=== PATIENT | female | born 1970 | race American Indian/Alaskan Native ===

== ENCOUNTER 2018-07-18 18:22 | Emergency (ER) | payer SELFPAY ==
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
[2018-07-18] MEDS ORDERED: MOTRIN PO ONE (21:17)
[2018-07-18 21:34] VITALS: BP 126/72
== END 2018-07-18 21:32 | disposition home or self-care (01) ==
LOC: ED 18:22
DX: M79.671 Pain in right foot (principal); I10 Essential (primary) hypertension; K21.9 Gastro-esophageal reflux disease without esophagitis; F32.9 Major depressive disorder, single episode, unspecified; J45.909 Unspecified asthma, uncomplicated; D57.3 Sickle-cell trait; F17.200 Nicotine dependence, unspecified, uncomplicated; Z90.710 Acquired absence of both cervix and uterus; Z91.018 Allergy to other foods; Z91.010 Allergy to peanuts; Z88.0 Allergy status to penicillin; Z88.5 Allergy status to narcotic agent
CPT/HCPCS: 99282

== ENCOUNTER 2018-12-07 17:37 | Emergency (ER) | payer OTHER ==
[2018-12-07 17:46] VITALS: BP 116/72
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
[2018-12-07] MEDS ORDERED: ULTRAM PO ONE (19:12)
[2018-12-07] MEDS ORDERED: IBUPROFEN PO ONE (19:12)
--- NOTE | 2018-12-07 19:53 | XRay Report ---
FINAL REPORT EXAM: XR SHOULDER 2+V RT HISTORY: right shoulder pain TECHNIQUE: Frontal and Y-views right shoulder Comparison: None FINDINGS: There is no evidence of fracture or subluxation. The joint spaces appear to be maintained. The soft tissues are unremarkable. IMPRESSION: 1. No evidence of bony or soft tissue abnormality. If the patient remains symptomatic, MRI may be helpful.
== END 2018-12-07 20:40 | disposition home or self-care (01) ==
LOC: ED 17:37
DX: S46.911A Strain of unspecified muscle, fascia and tendon at shoulder and upper arm level, right arm, initial encounter (principal); I10 Essential (primary) hypertension; K21.9 Gastro-esophageal reflux disease without esophagitis; F32.9 Major depressive disorder, single episode, unspecified; J45.909 Unspecified asthma, uncomplicated; X50.0XXA Overexertion from strenuous movement or load, initial encounter; Y93.89 Activity, other specified; Y92.89 Other specified places as the place of occurrence of the external cause; Y99.8 Other external cause status

== ENCOUNTER 2020-09-17 11:09 | Emergency (ER) | payer SELFPAY ==
[2020-09-17 11:24] VITALS: BP 125/56
[2020-09-17] MEDS ORDERED: CYCLOBENZAPRINE 10 MG TAB PO ONE (11:42)
[2020-09-17] MEDS ORDERED: KETOROLAC 60 MG/2 ML INJ IM ONE (11:42)
--- NOTE | 2020-09-17 12:16 | XRay Report ---
LUMBAR SPINE 2 VIEWS INDICATION / CLINICAL INFORMATION: low back pain s/p fall COMPARISON: None available. FINDINGS: BONES / JOINT(S): No acute fracture or subluxation. Minimal DDD L3-L5. SOFT TISSUES: No significant abnormality. ADDITIONAL FINDINGS: None. Signer Name: Dennis Garcia MD Signed: 09/17/2020 12:11 PM Workstation Name: [email or web address]
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
== END 2020-09-17 12:33 | disposition home or self-care (01) ==
LOC: ED 11:09
DX: S39.012A Strain of muscle, fascia and tendon of lower back, initial encounter (principal); I10 Essential (primary) hypertension; K21.9 Gastro-esophageal reflux disease without esophagitis; F32.89 Other specified depressive episodes; J45.909 Unspecified asthma, uncomplicated; D57.3 Sickle-cell trait; Z98.890 Other specified postprocedural states; Z90.710 Acquired absence of both cervix and uterus; Z79.899 Other long term (current) drug therapy; Z88.0 Allergy status to penicillin; Z91.010 Allergy to peanuts; Z91.018 Allergy to other foods; X58.XXXA Exposure to other specified factors, initial encounter; Y93.89 Activity, other specified; Y92.89 Other specified places as the place of occurrence of the external cause; Y99.8 Other external cause status
CPT/HCPCS: 72100; 96372; 99283; J1885

== ENCOUNTER 2021-02-09 22:42 | Emergency (ER) | payer SELFPAY ==
[2021-02-10 00:22] VITALS: BP 130/57
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
[2021-02-10] MEDS ORDERED: ACETAMINOPHEN 325 MG TAB PO ONE (01:49)
[2021-02-10] MEDS ORDERED: IBUPROFEN 400 MG TAB PO ONE (01:49)
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
== END 2021-02-10 03:01 | disposition home or self-care (01) ==
LOC: ED 22:42
DX: S43.402A Unspecified sprain of left shoulder joint, initial encounter (principal); S83.8X2A Sprain of other specified parts of left knee, initial encounter; M62.838 Other muscle spasm; M62.830 Muscle spasm of back; K21.9 Gastro-esophageal reflux disease without esophagitis; I10 Essential (primary) hypertension; J45.909 Unspecified asthma, uncomplicated; F32.9 Major depressive disorder, single episode, unspecified; F17.200 Nicotine dependence, unspecified, uncomplicated; Z90.710 Acquired absence of both cervix and uterus; Z79.899 Other long term (current) drug therapy; Z88.0 Allergy status to penicillin; Z88.8 Allergy status to other drugs, medicaments and biological substances; Z91.010 Allergy to peanuts; Z98.890 Other specified postprocedural states; Y04.8XXA Assault by other bodily force, initial encounter; Y93.89 Activity, other specified; Y92.009 Unspecified place in unspecified non-institutional (private) residence as the place of occurrence of the external cause; Y99.8 Other external cause status
CPT/HCPCS: 70150; 72040; 72100

== ENCOUNTER 2021-09-12 23:47 | Emergency (ER) | payer SELFPAY ==
[2021-09-13 00:09] VITALS: BP 97/53
== END 2021-09-13 01:00 ==
LOC: ED 23:47
DX: R05.9 Cough, unspecified (principal); J98.8 Other specified respiratory disorders; Z53.21 Procedure and treatment not carried out due to patient leaving prior to being seen by health care provider

== ENCOUNTER 2021-10-06 20:01 | Emergency (ER) | payer SELFPAY ==
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
[2021-10-06 21:17] LABS: Basophils % (Auto) 0.9 % (0.0-1.8); Eosinophils # (Auto) 0.3 K/mm3 (0.0-0.4); Eosinophils % (Auto) 5.5 % (0.0-4.3); Hematocrit 38.5 % (30.3-42.9); Hemoglobin 12.7 gm/dl (10.1-14.3); Lymphocytes # (Auto) 1.7 K/mm3 (1.2-5.4); Lymphocytes % (Auto) 35.3 % (13.4-35.0); Mean Corpuscular HGB Conc 33 % (30-34); Mean Corpuscular Volume 97 fl (79-97); Monocytes # (Auto) 0.7 K/mm3 (0.0-0.8); Platelet Count 274 K/mm3 (140-440); Red Blood Count 3.98 M/mm3 (3.65-5.03); Red Cell Distribution Width 13.2 % (13.2-15.2)
--- NOTE | 2021-10-06 21:17 | XRay Report ---
XR chest routine 2V INDICATION / CLINICAL INFORMATION: cough fever. COMPARISON: None available. FINDINGS: SUPPORT DEVICES: None. HEART /PULMONARY VASCULATURE: No significant abnormality. LUNGS / PLEURA: No significant pulmonary or pleural abnormality. No pneumothorax. ADDITIONAL FINDINGS: No significant additional findings. IMPRESSION: 1. No acute findings. Signer Name: Khadar Mcmullen MD Signed: 10/06/2021 9:13 PM Workstation Name: [id number]
[2021-10-06 21:31] LABS: Alanine Aminotransferase 34 units/L (7-56); Albumin 4.8 g/dL (3.9-5); Blood Urea Nitrogen 11 mg/dL (7-17); Calcium 9.7 mg/dL (8.4-10.2); Hemolysis Index 8
[2021-10-06 21:35] LABS: BUN/Creatinine Ratio 18
[2021-10-06] MEDS ORDERED: SODIUM CHLORIDE 0.9% 1000 ML 1,000 ML IV ONE (22:33)
[2021-10-07 01:54] VITALS: BP 110/62
--- NOTE | 2021-10-07 09:04 | Electrocardiograph Report ---
[facility] Test Date: 2021-10-06 Test Time: 21:04:07 Pat Name: REY ZHAO Department: Room: Gender: F Terminal Makeup Operator: : 1970 Requested By: ROSEMARY BUSBY Order Number: [id number] Reading MD: Delmer Martinez Measurements Intervals [place] Rate: 76 P: 74 DE: 181 QRS: 64 QRSD: 60 T: 46 QT: 393 QTc: 443 Interpretive Statements Sinus rhythm No previous ECG available for comparison Electronically Signed On 10-07-2021 9:03:54 EST by Delmer Martinez
== END 2021-10-07 01:54 | disposition home or self-care (01) ==
LOC: ED 20:01
DX: J06.9 Acute upper respiratory infection, unspecified (principal); R07.9 Chest pain, unspecified
CPT/HCPCS: 36415; 71046; 80053; 84484; 85025; 93005; 96360; 99284; J7030; Q0162